=== PATIENT | male | born 1975 | race Caucasian/White ===

== ENCOUNTER 2018-06-21 13:39 | Emergency (ER) | payer BC, MEDICAID ==
[~2018-06-21] VITALS: Ht 165.1 cm; Wt 104.5 kg
[2018-06-21 14:05] VITALS: BP 127/96
[2018-06-21] MEDS ORDERED: ibuprofen 200mg tablet PO ONE (16:20)
--- NOTE | 2018-06-21 16:20 | NUR ---
DR ORTIZ AT BEDSIDE ASSESSING SPLINT
[2018-06-22] MEDS ORDERED: IBUP-1985 PO (10:40)
== END 2018-06-21 16:31 | disposition home or self-care (01) ==
LOC: ER 13:40
DX: S82.64XA Nondisplaced fracture of lateral malleolus of right fibula, initial encounter for closed fracture (principal); M19.90 Unspecified osteoarthritis, unspecified site; I10 Essential (primary) hypertension; F17.200 Nicotine dependence, unspecified, uncomplicated; X58.XXXA Exposure to other specified factors, initial encounter; Y93.89 Activity, other specified; Y92.89 Other specified places as the place of occurrence of the external cause; Y99.8 Other external cause status
CPT/HCPCS: 29515; 73610; 99283

== ENCOUNTER 2018-06-22 08:15 | Emergency (ER) | payer BC ==
[~2018-06-22] VITALS: Ht 165.1 cm; Wt 104.0 kg
[2018-06-22 08:24] VITALS: BP 129/99
[2018-06-22] MEDS ORDERED: IBUP-1985 PO (10:40)
== END 2018-06-22 10:53 | disposition home or self-care (01) ==
LOC: ER 08:16
DX: S82.64XD Nondisplaced fracture of lateral malleolus of right fibula, subsequent encounter for closed fracture with routine healing (principal); I10 Essential (primary) hypertension; M19.90 Unspecified osteoarthritis, unspecified site; Z79.899 Other long term (current) drug therapy; X58.XXXD Exposure to other specified factors, subsequent encounter
CPT/HCPCS: 99282